=== PATIENT | female | born 1970 | race Caucasian/White ===

== ENCOUNTER 2024-04-15 18:15 | Outpatient (CLI) | payer OTHER, SELFPAY | END 2024-04-15 18:16 | disposition home or self-care (01) | LOC: NFLDREF 05-09 16:03 | PROVIDERS: PCP Family Medicine; Referring Provider Family Medicine; Visit Provider Nurse Practitioner Family | DX: R30.0 Dysuria (principal); N94.9 Unspecified condition associated with female genital organs and menstrual cycle | CPT/HCPCS: 87086 ==